=== PATIENT | male | born 1990 | race Caucasian/White ===

== ENCOUNTER 2018-08-05 20:54 | Emergency (ER) | payer BC, MEDICAID ==
[~2018-08-05] VITALS: Ht 154.9 cm; Wt 62.7 kg
[2018-08-05 21:08] VITALS: BP 147/84
[2018-08-05] MEDS ORDERED: IBUP-1984 PO (21:53)
== END 2018-08-05 22:00 | disposition home or self-care (01) ==
LOC: ER 20:54
DX: S80.12XA Contusion of left lower leg, initial encounter (principal); Z79.899 Other long term (current) drug therapy; V27.4XXA Motorcycle driver injured in collision with fixed or stationary object in traffic accident, initial encounter; Y93.55 Activity, bike riding; Y92.488 Other paved roadways as the place of occurrence of the external cause; Y99.8 Other external cause status
CPT/HCPCS: 73590; 99283

== ENCOUNTER 2024-02-25 17:49 | Emergency (ER) | payer MEDICAID ==
[~2024-02-25] VITALS: Ht 154.9 cm; Wt 56.3 kg
[2024-02-25] MEDS ORDERED: BUPR1FIL3 SL (18:49)
[2024-02-25] MEDS ORDERED: NALO4SPR5 (18:53)
[2024-02-25 19:10] VITALS: BP 116/67; PULSE 91; RESP 18; TEMP 97.9; O2SAT 100
== END 2024-02-25 19:11 | disposition home or self-care (01) ==
LOC: ER 17:49
DX: F11.99 Opioid use, unspecified with unspecified opioid-induced disorder (principal); Z79.899 Other long term (current) drug therapy
CPT/HCPCS: 99283

== ENCOUNTER 2024-05-18 17:09 | Emergency (ER) | payer MEDICAID ==
[~2024-05-18] VITALS: Ht 154.9 cm; Wt 56.4 kg
[~2024-05-18 17:09] MED LIST: NALO4SPR22
[2024-05-18 17:23] VITALS: BP 144/96; PULSE 79; TEMP 98.5; O2SAT 100
[2024-05-18] MEDS ORDERED: BUPR1FIL7 SL (18:09)
[2024-05-18 18:17] VITALS: RESP 18
[2024-05-18] MEDS ORDERED: buprenorphine/naloxone 8MG-2MG SUBlingual film SL SCH (18:20)
== END 2024-05-18 18:18 | disposition home or self-care (01) ==
LOC: ER 17:09
DX: F11.20 Opioid dependence, uncomplicated (principal)
CPT/HCPCS: 99281; 99283